=== PATIENT | female | born 1980 | race Caucasian/White ===

== ENCOUNTER 2018-11-18 18:16 | Inpatient (IN) | payer MEDICAID ==
[2018-11-18] MEDS ORDERED: METHYLERGONOVINE 0.2 MG INJ IM (19:30)
[2018-11-18] MEDS ORDERED: OXYCODONE/ASPIRIN (4.88/325) TAB PO (19:30)
[2018-11-18] MEDS ORDERED: OXYTOCIN 30 UNITS/LR 500 ML IV ×2 (19:30)
[2018-11-18] MEDS ORDERED: CARBOPROST 250 MCG INJ IM (19:30)
[2018-11-18] MEDS ORDERED: IBUPROFEN 600 MG TAB PO (19:30)
[2018-11-18] MEDS ORDERED: LIDOCAINE 1% (MPF) 30 ML INJ INJ (19:30)
[2018-11-18] MEDS ORDERED: MISOPROSTOL 200 MCG TAB PR (19:30)
[2018-11-18] MEDS ORDERED: BUTORPHANOL 2 MG INJ IV ×2 (19:30)
[2018-11-18] MEDS: LACTATED RINGER'S 1,000 ML IV (19:33)
[2018-11-18 19:39] LABS: ADD MAN DIFF? NO
[2018-11-18 19:42] LABS: WHITE BLOOD COUNT 10.9 10^3/ul (4.8-10.8)
[2018-11-18 19:43] LABS: BASOPHILS % 0.2 % (0.0-2.0); EOSINOPHILS % 0.1 % (0.0-7.0); HEMATOCRIT 36.9 % (37.0-47.0); HEMOGLOBIN 12.7 g/dl (12.0-16.0); LYMPHOCYTES # 1.4 10^3/ul (0.8-2.9); LYMPHOCYTES % 12.4 % (15.0-51.0); MEAN CORPUSCULAR HEMOGLOBIN 32.8 pg (29.0-33.0); MEAN CORPUSCULAR HGB CONC 34.4 g/dl (32.0-37.0); MEAN CORPUSCULAR VOLUME 95.3 fl (82.0-101.0); MEAN PLATELET VOLUME 12.3 fl (7.4-10.4); MONOCYTE # 0.5 10^3/ul (0.3-0.9); MONOCYTES % 4.4 % (0.0-11.0); NEUTROPHILS % 82.5 % (39.0-77.0); PLATELET COUNT 223 10^3/UL (140-415); RED BLOOD COUNT 3.87 10^6/ul (4.20-5.40); RED CELL DISTRIBUTION WIDTH 12.3 % (11.5-14.5)
[2018-11-18 19:45] LABS: ADD UMIC YES; UR ASCORBIC ACID NEGATIVE (NEGATIVE); UR BACTERIA FEW /HPF (NONE SEEN); UR BILIRUBIN (Dip) NEGATIVE (NEGATIVE); UR BLOOD (Dip) NEGATIVE (NEGATIVE); UR CLARITY SLIGHTLY CLOUDY (CLEAR); UR COLOR AMBER (YELLOW); UR GLUCOSE (Dip) NEGATIVE (NEGATIVE); UR KETONES (Dip) 2+ mg/dL (NEGATIVE); UR LEUKOCYTE ESTERASE (Dip) TRACE Leu/ul (NEGATIVE); UR MUCUS FEW /HPF (NONE SEEN); UR NITRITE (Dip) NEGATIVE (NEGATIVE); UR RBC 1 /HPF (0-5); UR SQUAMOUS EPITHELIAL CELL FEW /HPF (FEW); UR TOTAL PROTEIN (Dip) 2+ mg/dl (NEGATIVE); UR UROBILINOGEN (Dip) 1+ mg/dL (NEGATIVE); UR WBC 4 /HPF (0-5)
[2018-11-18 20:04] LABS: INR 0.91; PROTIME 12.4 Sec (11.9-14.9)
[2018-11-18 20:05] LABS: ALANINE AMINOTRANSFERASE 18 IU/L (13-69); ALBUMIN 3.9 g/dl (3.3-4.9); ALBUMIN/GLOBULIN RATIO 1.11; ALKALINE PHOSPHATASE 122 IU/L (42-121); ANION GAP 11 (5-13); ASPARTATE AMINO TRANSFERASE 26 IU/L (15-46); BILIRUBIN,INDIRECT 0.4 mg/dl (0-1.1); BILIRUBIN,TOTAL 0.4 mg/dl (0.2-1.3); BLOOD UREA NITROGEN 9 mg/dl (7-20); CALCIUM 9.6 mg/dl (8.4-10.2); CARBON DIOXIDE 23 mmol/L (21-31); CHLORIDE 105 mmol/L (97-110); CREATININE 0.57 mg/dl (0.44-1.00); Estimated GFR > 60 mL/min (>60); GLUCOSE 80 mg/dl (70-220); PARTIAL THROMBOPLASTIN TIME 25.2 Sec (23.0-35.0); POTASSIUM 4.6 mmol/L (3.5-5.1); SODIUM 139 mmol/L (135-144); TOTAL PROTEIN 7.4 g/dl (6.1-8.1)
[2018-11-18 20:37] LABS: URIC ACID 5.5 mg/dl (3.1-7.9)
[2018-11-18] MEDS: OXYTOCIN 30 UNITS/LR 500 ML IV (21:02)
[2018-11-19] MEDS: LACTATED RINGER'S 1,000 ML IV ×4 (03:13→11:30)
[2018-11-19] MEDS ORDERED: FENTAnyl 2MCG/ML-ROPIV 0.2% 100 ML BAG EPI (04:43)
[2018-11-19] MEDS ORDERED: ONDANSETRON 4 MG INJ IV (05:00)
[2018-11-19] MEDS ORDERED: NALOXONE (0.4 MG/ML) INJ IV (05:00)
[2018-11-19] MEDS ORDERED: DIPHENHYDRAMINE 50 MG INJ IV (05:00)
[2018-11-19] MEDS ORDERED: SOD CHLORIDE 0.9% 1,000 ML IV (09:00)
[2018-11-19 12:12] LABS: AADO2 Cord Arterial 66.4 mmHg; Arterial Cord Blood pCO2 52.2 mmHG (25-50); CBA Base Excess -0.7 mmol/L; CBA COHb 0.9 %; CBA Oxygen Sat 46.9 mmHG; CBA Total Hemglobin 16.4 g/dl; Cord Blood Arterial pO2 20.8 mmHG (15.0-45.0); Fraction OxyHgb Cord Arterial 45.8 %; MODE ROOM AIR; MetHgb Cord Arterial 1.5 %; Sample Type CBA; Site CORD
[2018-11-19 12:13] LABS: CBV Base Excess -3.4 mmol/L; CBV COHb 1.6 %; CBV Oxygen Sat 60.5 mmHG; CBV Total Hemglobin 17.1 g/dl; Cord Blood Venous AADO2 66.7 mmHg; Cord Blood Venous pO2 26.4 mmHG (15.0-45.0); Fraction OxyHgb Cord Venous 58.8 %; MODE ROOM AIR; MetHgb Cord Venous 1.2 %; Sample Type CBV; Site CORD
[2018-11-19] MEDS: OXYTOCIN 30 UNITS/LR 500 ML IV ×3 (12:29→22:33)
[2018-11-19] MEDS ORDERED: OXYTOCIN 30 UNITS/LR 500 ML IV (13:00)
[2018-11-19] MEDS ORDERED: MISOPROSTOL 200 MCG TAB PR (13:00)
[2018-11-19] MEDS ORDERED: HYDROCODONE/APAP (5/325) TAB PO (13:00)
[2018-11-19] MEDS ORDERED: CARBOPROST 250 MCG INJ IM (13:00)
[2018-11-19] MEDS ORDERED: METHYLERGONOVINE 0.2 MG INJ IM (13:00)
[2018-11-19] MEDS: LACTATED RINGER'S 1,000 ML IV* ×2 (16:00→20:33)
[2018-11-19] MEDS: LANOLIN HPA 1 PKT TOP (16:39)
[2018-11-19] MEDS: IBUPROFEN 600 MG TAB PO ×2 (17:27→23:40)
[2018-11-19 20:43] LABS: RAPID PLASMA REAGIN NONREACTIVE (NR)
[2018-11-20] MEDS: IBUPROFEN 600 MG TAB PO ×3 (05:10→17:57)
[2018-11-20 08:20] LABS: ADD MAN DIFF? NO
[2018-11-20 08:23] LABS: BASOPHILS % 0.2 % (0.0-2.0); EOSINOPHILS # 0.1 10^3/ul (0.0-0.5); EOSINOPHILS % 0.7 % (0.0-7.0); HEMATOCRIT 30.5 % (37.0-47.0); HEMOGLOBIN 10.4 g/dl (12.0-16.0); LYMPHOCYTES # 1.7 10^3/ul (0.8-2.9); LYMPHOCYTES % 16.1 % (15.0-51.0); MEAN CORPUSCULAR HEMOGLOBIN 32.9 pg (29.0-33.0); MEAN CORPUSCULAR HGB CONC 34.1 g/dl (32.0-37.0); MEAN CORPUSCULAR VOLUME 96.5 fl (82.0-101.0); MEAN PLATELET VOLUME 12.3 fl (7.4-10.4); MONOCYTE # 0.4 10^3/ul (0.3-0.9); MONOCYTES % 4.1 % (0.0-11.0); NEUTROPHIL # 8.4 10^3/ul (1.6-7.5); NEUTROPHILS % 78.5 % (39.0-77.0); PLATELET COUNT 154 10^3/UL (140-415); RED BLOOD COUNT 3.16 10^6/ul (4.20-5.40); RED CELL DISTRIBUTION WIDTH 12.3 % (11.5-14.5)
[2018-11-20 08:23] LABS: WHITE BLOOD COUNT 10.7 10^3/ul (4.8-10.8)
[2018-11-21] MEDS: IBUPROFEN 600 MG TAB PO ×4 (00:01→17:56)
[2018-11-21] MEDS: DIPHTH/TET/ACEL PERTUSS (ADULT) 0.5 ML VIAL IM* (09:00)
== END 2018-11-21 18:00 | disposition home or self-care (01) | DRG 807 ==
LOC: OBT 18:16 → PP1 11-19 14:14 → L-D 18:17 → OBT 18:57 → L-D 18:57
PROVIDERS: Obstetrics & Gynecology
PROC: 10E0XZZ Delivery of Products of Conception, External Approach (ICD-10-PCS; principal; 2018-11-19)
PROC: 0HQ9XZZ Repair Perineum Skin, External Approach (ICD-10-PCS; 2018-11-19)
DX: O14.94 Unspecified pre-eclampsia, complicating childbirth (principal); Z37.0 Single live birth; O69.81X0 Labor and delivery complicated by cord around neck, without compression, not applicable or unspecified; O70.0 First degree perineal laceration during delivery; O13.4 Gestational [pregnancy-induced] hypertension without significant proteinuria, complicating childbirth; Z3A.38 38 weeks gestation of pregnancy
CPT/HCPCS: 36415; 36600; 62322; 80053; 81001; 82803; 84560; 85025; 85610; 85730; 86592; 86850; 86900; 86901; 88307; 99464